=== PATIENT | male | born 1980 | race Caucasian/White ===

== ENCOUNTER 2024-06-17 16:33 | Inpatient (IN) | payer OTHER ==
[2024-06-17 17:47] VITALS: BMI 20.7
[2024-06-17] MEDS ORDERED: hydrOXYzine PAMOATE 25 MG CAPSULE (FP) PO PRN (18:21)
[2024-06-17] MEDS ORDERED: MAGNESIUM HYDROX 2400MG/30ML ORAL SUSPENSION 30 ML CUP PO PRN (18:21)
[2024-06-17] MEDS ORDERED: IBUPROFEN 400 MG TABLET (FP) PO PRN (18:21)
[2024-06-17] MEDS ORDERED: BENZOCAINE/MENTHOL (CHLORASEPTIC ) LOZENGE MM PRN (18:21)
[2024-06-17] MEDS ORDERED: cloNIDine HCL 0.1 MG TABLET PO PRN (18:21)
[2024-06-17] MEDS ORDERED: clonazePAM 0.5 MG ODT TABLETS SL PRN (18:21)
[2024-06-17] MEDS ORDERED: MAG HYDROX/AL HYDROX/SIMETH 30 ML UNIT-DOSE CUP PO PRN (18:21)
[2024-06-17] MEDS ORDERED: guaiFENesin 600 MG TABLET.ER (FP) PO PRN (18:21)
[2024-06-17] MEDS ORDERED: DICYCLOMINE HCL 10 MG CAPSULE PO PRN (18:21)
[2024-06-17] MEDS ORDERED: METHOCARBAMOL 500 MG TABLET PO PRN (18:21)
[2024-06-17] MEDS ORDERED: NALOXONE (NARCAN) HCL 4 MG/0.1 ML SPRAY NS PRN (18:21)
[2024-06-17] MEDS ORDERED: ONDANSETRON *ODT* 4 MG TABLET SL PRN (18:21)
[2024-06-17] MEDS ORDERED: NICOTINE POLACRILEX 4 MG GUM BUC PRN (18:21)
[2024-06-17] MEDS ORDERED: IBUPROFEN 600 MG TABLET (FP) PO PRN (18:21)
[2024-06-17] MEDS ORDERED: ACETAMINOPHEN 325 MG TABLET (FP) PO PRN (18:21)
[2024-06-17] MEDS ORDERED: BENZONATATE 200 MG CAPSULE PO PRN (18:21)
[2024-06-17] MEDS ORDERED: POLYETHYLENE GLYCOL (HEALTHYLAX) 3350 17 GM PACKET PO PRN (18:21)
[2024-06-17] MEDS ORDERED: methaDONE HCL 10 MG TABLET (FOR DETOX USE ONLY) ONE (19:09)
[2024-06-17] MEDS: methaDONE HCL 10 MG TABLET (FOR DETOX USE ONLY) PO ONE (19:19)
[2024-06-17] MEDS: MELATONIN 5 MG TABLETS PO SCH (22:51)
[2024-06-17] MEDS: THIAMINE 100 MG TABLET PO SCH (22:52)
[2024-06-18] MEDS: PRENATAL VITAMINS W/ FOLIC ACID TABLET (FP) PO SCH (09:44)
[2024-06-18] MEDS: NICOTINE 21 MG/24 HOURS TOPICAL PATCH TD SCH (09:47)
[2024-06-18] MEDS: methaDONE HCL 10 MG TABLET PO PRN (17:08)
[2024-06-18] MEDS: cloNIDine HCL 0.1 MG TABLET PO SCH (17:08)
[2024-06-19] MEDS: methaDONE 40 MG, methaDONE 10 MG PO ONE (09:22)
[2024-06-19] MEDS ORDERED: methaDONE HCL 10 MG TABLET (FOR DETOX USE ONLY) PO ONE (10:00)
[2024-06-19] MEDS: BISMUTH SUBSALICYLATE 524 MG/30 ML PO PRN (22:18)
[2024-06-20] MEDS: methaDONE 40 MG, methaDONE 20 MG PO ONE (10:10)
[2024-06-20] MEDS: cloNIDine HCL 0.1 MG TABLET PO PRN (10:11)
[2024-06-20] MEDS: LOPERAMIDE HCL 2 MG CAPSULE PO PRN (22:24)
[2024-06-21] MEDS: methaDONE 40 MG, methaDONE 30 MG PO ONE (09:48)
[2024-06-21] MEDS ORDERED: methaDONE HCL 10 MG TABLET (FOR DETOX USE ONLY) PO ONE (10:00)
[2024-06-21 12:39] VITALS: BP 123/77; PULSE 66; RESP 16; TEMP 98
[2024-06-21] MEDS: NALOXONE (NYS OPIOID OVERDOSE PROGRAM) 4 MG/0.1 ML SPRAY NS PRN (14:11)
[2024-06-22] MEDS ORDERED: methaDONE HCL 40 MG DISPERSABLE TABLET PO ONE (10:00)
[2024-06-23] MEDS ORDERED: methaDONE 80 MG, methaDONE 10 MG PO ONE (10:00)
== END 2024-06-21 14:25 | disposition home or self-care (01) | DRG 773 ==
LOC: YASAS 16:33 → Y3N 19:18
PROVIDERS: ADMIT Allergy & Immunology; ATTEND Surgery
PROC: HZ2ZZZZ Detoxification Services for Substance Abuse Treatment (ICD-10-PCS; principal; 2024-06-17)
DX: F11.23 Opioid dependence with withdrawal (principal); F14.20 Cocaine dependence, uncomplicated; F17.210 Nicotine dependence, cigarettes, uncomplicated; F31.9 Bipolar disorder, unspecified; F19.24 Other psychoactive substance dependence with psychoactive substance-induced mood disorder; Z21 Asymptomatic human immunodeficiency virus [HIV] infection status; Z59.00 Homelessness unspecified
CPT/HCPCS: 80305; 80307; 93005; 93010